=== PATIENT | male | born 1940 | race Hispanic/Latino ===

== ENCOUNTER 2017-10-22 21:15 | Emergency (ER) | payer MEDICARE, OTHER ==
[~2017-10-22] VITALS: Ht 167.6 cm; Wt 76.2 kg
[~2017-10-22 21:15] MED LIST: ASPIR 8181 MG PO; LISINOPRIL5 MG PO; LOPRESSOR25 MG PO; PRAVACHOL40 MG PO; ULTRAM50 MG PO; ZESTRIL10 MG PO
== END 2017-10-22 23:59 | disposition home or self-care (01) ==
LOC: ER 21:15
DX: I10 Essential (primary) hypertension (principal)
CPT/HCPCS: 93005; 99282

== ENCOUNTER → 2017-12-08 | Outpatient (CLI) | payer MEDICARE, OTHER ==
--- NOTE | 2017-12-08 19:08 | Diagnostic Imaging Report ---
PROCEDURE: CT CHEST WITHOUT CONTRAST CT scan of the chest WITHOUT intravenous contrast, using standard protocol. TECHNIQUE: The chest was scanned utilizing a multidetector helical scanner from the apex to the level of the adrenal glands. No IV contrast was administered per physician's request. Coronal and sagittal multiplanar reformations were obtained. COMPARISON: [facility], CT, CT CHEST WO, 01/26/2013, 20:35. INDICATIONS: SMOKER FINDINGS: Lines/tubes: None. Lungs and Airways: Moderate bilateral centrilobular emphysematous changes predominantly involving the upper lobes, which are more prominent than on prior exam. Stable 7 mm polygonal shaped nodular density in the minor fissure (sagittal image 34 and series 3, image 74, consistent with a benign luca-fissural nodule. Stable 8mm density in the anterior left upper lobe (series 3, image 48) No other nodules. No masses or consolidation. Mildly increased attenuation of the parenchyma in the posterior upper lobes, similar to prior exams likely representing mild fibrosis or atelectasis. Mild bilateral lower lobe dependent atelectasis. Pleura: No effusion, or pneumothorax. Heart and mediastinum: Thyroid is unremarkable. Mild cardiomegaly. Atherosclerotic calcification of aortic valve, coronary arteries and thoracic aorta. Aorta is non-aneurysmal. Main pulmonary artery is enlarged, measuring 3.9 cm. Lymph nodes: No mediastinal or axillary adenopathy. Difficult to evaluate for hilar adenopathy given the lack of intravenous contrast. Abdomen: Limited views of the upper abdomen show no abnormality within the visualized spleen, pancreas, or kidneys. The adrenal glands are normal. Interval increase in size in fluid density lesion in hepatic segment IV/II (series 2 image 98), which measures 5.2 x 5.3 cm (previously measured 3.8 x 4.3 cm). Interval decrease in size of 1.1 x 1.1 cm fluid density lesion in hepatic segment III (series 2 image 109), which previously measured 1.5 x 1.5 cm. Cholelithiasis. No wall thickening Bones: No aggressive lytic lesions. Soft tissues are unremarkable. IMPRESSION: 1. moderate bilateral centrilobular emphysematous changes predominantly in the upper lobes, which are more prominent than on prior exam. 2. Mild increased attenuation of the parenchyma in the posterior aspect of bilateral upper lobes, similar to prior exams, which may represent mild dependent atelectasis or mild interstitial fibrosis. 3. Stable 8 mm density in the anterior left upper lobe, likely representing vessel branching, given its stability since 2013. A stable (probably benign) pulmonary nodule is a secondary consideration. Difficult to differentiate given the lack of intravenous contrast. 4. No consolidation or masses. 5. Mild cardiomegaly. 6. 5.3 centimeter simple cyst in hepatic segment IV/II, slightly increased in size. Interval decrease in size of 1.1 cm simple cyst in hepatic segment III. 7. Cholelithiasis, without CT evidence of cholecystitis. Niko Rehman M.D. Dictated by: Niko Rehman M.D. on 12/08/2017 at 19:11 Electronically approved by: Niko Rehman M.D. on 12/08/2017 at 19:11
== END ==
LOC: CT 13:08
PROVIDERS: ATTEND Family Medicine
DX: F17.210 Nicotine dependence, cigarettes, uncomplicated (principal)
CPT/HCPCS: 71250

== ENCOUNTER → 2018-11-08 | Outpatient (CLI) | payer MEDICARE ==
--- NOTE | 2018-11-08 18:23 | Diagnostic Imaging Report ---
Abdominal ultrasound. History: Abdominal pain Comparison: <None available>. Discussion: Transverse and longitudinal images of the abdomen were obtained demonstrating a liver of normal size and echogenicity measuring 15.9 cm in length. The portal vein is patent with hepatopetal flow and is within normal limits measuring 10 mm in diameter. There is a large left hepatic lobe cyst measuring 5.1 x 3.5 x 5.9 cm. The common bile duct measuring 4 mm in diameter. There are stones within the gallbladder with posterior acoustic shadowing. Gallbladder wall is not thickened. The sonographic Lubin's sign was negative. The kidneys are normal in size and echogenicity bilaterally without evidence of hydronephrosis, stones or mass. The right kidney measures 9.1 x 4.0 x 4.9 cm and the left kidney measures 10.5 x 5.8 x 4.7 cm. The spleen is normal in size and appearance measuring 8.2 x 4.1 x 4.0 cm. Limited evaluation of the pancreas due to bowel gas. The aorta has a maximal measurement of 1.7 cm. The IVC is patent. There is no evidence of free fluid. IMPRESSION: 1. Cholelithiasis without findings of cholecystitis. 2. Large left hepatic lobe cyst. Signed by: Dr. Dariel Deng DO on 11/08/2018 6:19 PM
== END ==
LOC: US 15:29
PROVIDERS: ATTEND Family Medicine
DX: R10.9 Unspecified abdominal pain (principal)
CPT/HCPCS: 76700

== ENCOUNTER → 2018-12-08 | Outpatient (CLI) | payer MEDICARE ==
--- NOTE | 2018-12-08 20:22 | Diagnostic Imaging Report ---
Hepatobiliary Scan with Gallbladder Ejection Fraction Clinical information: Abdominal pain; cholelithiasis Technique: Following intravenous administration of 6.7 millicuries of Tc-99m mebrofenin, dynamic images of the abdomen in the anterior projection were obtained through 30 minutes. Sincalide (CCK analog) 1.5 micrograms was administered intravenously over 30 minutes with additional imaging for determination of gallbladder ejection fraction. Discussion: Perfusion of the liver is normal. Extraction of tracer by the liver parenchyma is normal. Tracer appears promptly within the biliary tract. The gallbladder begins to fill at 12 minutes post injection of tracer and fills adequately. Tracer is seen in the small bowel during the sincalide infusion. There is no contractile response by the gallbladder to the pharmacologic dose of sincalide. No emptying of the gallbladder occurs during the 30 minute infusion. Impression: 1. Filling of the gallbladder excludes acute cystic duct obstruction/acute cholecystitis. 2. The gallbladder ejection fraction is undefined as there is no emptying of the gallbladder during the infusion of sincalide. This absence of a contractile response to sincalide supports the clinical diagnosis of chronic cholecystitis/gallbladder dyskinesia. Signed by: Dr. Jackie Montiel M.D. on 12/08/2018 8:19 PM
== END ==
LOC: NM 11:09
PROVIDERS: ATTEND Family Medicine
DX: R10.9 Unspecified abdominal pain (principal); K80.80 Other cholelithiasis without obstruction
CPT/HCPCS: 78227; A9537

== ENCOUNTER 2019-02-24 14:19 | Emergency (ER) | payer MEDICARE ==
[~2019-02-24] VITALS: Ht 167.6 cm; Wt 76.2 kg
--- OUTSIDE RECORDS SUMMARY | 2019-02-24 14:21 | XMS REPORT ---
Author Author [facility] Organization [facility] Address Unknown Phone Unavailable Care Team Providers Care Assistant Accounting Manager Name Role Phone RACIEL IRAIS Unavailable Unavailable Payers Payer Name Policy Type Policy Number Effective Date Expiration Date Problems This patient has no known problems. Allergies, Adverse Reactions, Alerts This patient has no known allergies or adverse reactions. Medications This patient has no known medications. Results Test Description Test Time Test Comments Text Results Atomic Results Result Comments HEPTOBILIARY W PHARM 2018-12-08 20:17:00 [place] [address] Patient Name: DEJUAN HICKS MR #: [id number] : 1940 Age/Sex: 78/M Req #: [id number] Adm Physician: Ordered by: RACIEL BURRIS, IRAIS Neri MD Report #: [id number] Location: [place] Room/Bed: Procedure: [id number] NM/HEPTOBILIARY W PHARM Exam Date: 12/08/18 Exam Time: 1115 REPORT STATUS: Signed Hepatobiliary Scan with Gallbladder Ejection Fraction Clinical information: Abdominal pain; cholelithiasis Technique: Following intravenous administration of 6.7 millicuries of Tc-99m mebrofenin, dynamic images of the abdomen in the anterior projection were obtained through 30 minutes. Sincalide (CCK analog) 1.5 micrograms was administered intravenously over 30 minutes with additional imaging for determination of gallbladder ejection fraction. Discussion: Perfusion of the liver is normal. Extraction of tracer by the liver parenchyma is normal. Tracer appears promptly within the biliary tract. The gallbladder begins to fill at 12 minutes post injection of tracer and fills adequately. Tracer is seen in the small bowel during the sincalide infusion. There is no contractile response by the gallbladder to the pharmacologic dose of sincalide. No emptying of the gallbladder occurs during the 30 minute infusion. Impression: 1. Filling of the gallbladder excludes acute cystic duct obstruction/acute cholecystitis. 2. The gallbladder ejection fraction is undefined as there is no emptying of the gallbladder during the infusion of sincalide. This absence of a contractile response to sincalide supports the clinical diagnosis of chronic cholecystitis/gallbladder dyskinesia. Signed by: Dr. Jackie Montiel M.D. on 12/08/2018 8:19 PM Dictated By: JACKIE MONTIEL MD 18 Transcribed By: MATTHEW on 12/08/182018 COPY TO: IRAIS SCHRADER ABDOMEN COMPLETE 2018-11-08 18:13:00 [place] [address] Patient Name: DEJUAN HICKS MR #: [id number] : 1940 Age/Sex: 78/M Req #: [id number] Adm Physician: Ordered by: RACIEL BURRIS, IRAIS Neri MD Report #: [id number] Location: [place] Room/Bed: Procedure: [id number] US/US ABDOMEN COMPLETE Exam Date: 11/08/18 Exam Time: 1546 REPORT STATUS: Signed Abdominal ultrasound. History: Abdominal pain Comparison: <None available>. Discussion: Transverse and longitudinal images of the abdomen were obtained demonstrating a liver of normal size and echogenicity measuring 15.9 cm in length. The portal vein is patent with hepatopetal flow and is within normal limits measuring 10 mm in diameter. There is a large left hepatic lobe cyst measuring 5.1 x 3.5 x 5.9 cm. The common bile duct measuring 4 mm in diameter. There are stones within the gallbladder with posterior acoustic shadowing. Gallbladder wall is not thickened. The sonographic Lubin's sign was negative. The kidneys are normal in size and echogenicity bilaterally without evidence of hydronephrosis, stones or mass. The right kidney measures 9.1 x 4.0 x 4.9 cm and the left kidney measures 10.5 x 5.8 x 4.7 cm. The spleen is normal in size and appearance measuring 8.2 x 4.1 x 4.0 cm. Limited evaluation of the pancreas due to bowel gas. The aorta has a maximal measurement of 1.7 cm. The IVC is patent. There is no evidence of free fluid. IMPRESSION: 1. Cholelithiasis without findings of cholecystitis. 2. Large left hepatic lobe cyst. Signed by: Dr. Janki Deng DO on 11/08/2018 6:19 PM Dictated By: JANKI DENG DO 18 Transcribed By: MATTHEW on 11/08/181818 COPY TO: IRAIS SCHRADER CT CHEST [place] [address] Patient Name: DEJUAN HICKS MR #: [id number] : 1940 Age/Sex: 77/M Req #: [id number] Adm Physician: Ordered by: IRAIS SCHRADER MD, MD Report #: [id number] Location: CT Room/Bed: Procedure: [id number] CT/CT CHEST WO Exam Date: 12/08/17 Exam Time: 1315 REPORT STATUS: Signed PROCEDURE: CT CHEST WITHOUT CONTRAST CT scan of the chest WITHOUT intravenous contrast, using standard protocol. TECHNIQUE: The chest was scanned utilizing a multidetector helical scanner from the apex to the level of the adrenal glands. No IV contrast was administered per physician's request. Coronal and sagittal multiplanar reformations were obtained. COMPARISON: [facility] [place], CT, CT CHEST WO, 01/26/2013, 20:35. INDICATIONS: SMOKER FINDINGS: Lines/tubes: None. Lungs and Airways: Moderate bilateral centrilobular emphysematous changes predominantly involving the upper lobes, which are more prominent than on prior exam. Stable 7 mm polygonal shaped nodular density in the minor fissure (sagittal image 34 and series 3, image 74, consistent with a benign luca-fissural nodule. Stable 8mm density in the anterior left upper lobe (series 3, image 48) No other nodules. No masses or consolidation. Mildly increased attenuation of the parenchyma in the posterior upper lobes, similar to prior exams likely representing mild fibrosis or atelectasis. Mild bilateral lower lobe dependent atelectasis. Pleura: No effusion, or pneumothorax. Heart and mediastinum: Thyroid is unremarkable. Mild cardiomegaly. Atherosclerotic calcification of aortic valve, coronary arteries and thoracic aorta. Aorta is non-aneurysmal. Main pulmonary artery is enlarged, measuring 3.9 cm. Lymph nodes: No mediastinal or axillary adenopathy. Difficult to evaluate for hilar adenopathy given the lack of intravenous contrast. Abdomen: Limited views of the upper abdomen show no abnormality within the visualized spleen, pancreas, or kidneys. The adrenal glands are normal. Interval increase in size in fluid density lesion in hepatic segment IV/II (series 2 image 98), which measures 5.2 x 5.3 cm (previously measured 3.8 x 4.3 cm). Interval decrease in size of 1.1 x 1.1 cm fluid density lesion in hepatic segment III (series 2 image 109), which previously measured 1.5 x 1.5 cm. Cholelithiasis. No wall thickening Bones: No aggressive lytic lesions. Soft tissues are unremarkable. IMPRESSION: 1. moderate bilateral centrilobular emphysematous changes predominantly in the upper lobes, which are more prominent than on prior exam. 2. Mild increased attenuation of the parenchyma in the posterior aspect of bilateral upper lobes, similar to prior exams, which may represent mild dependent atelectasis or mild interstitial fibrosis. 3. Stable 8 mm density in the anterior left upper lobe, likely representing vessel branching, given its stability since 2013. A stable (probably benign) pulmonary nodule is a secondary consideration. Difficult to differentiate given the lack of intravenous contrast. 4. No consolidation or masses. 5. Mild cardiomegaly. 6. 5.3 centimeter simple cyst in hepatic segment IV/II, slightly increased in size. Interval decrease in size of 1.1 cm simple cyst in hepatic segment III. 7. Cholelithiasis, without CT evidence of cholecystitis. Lazara Rehman M.D. Dictated by: Lazara Rehman M.D. on 12/08/2017 at 19:11 Electronically approved by: Lazara Rehman M.D. on 12/08/2017 at 19:11 Dictated By: LAZARA REHMAN MD 10 Transcribed By: DEL on 12/08/171910 COPY TO: IRAIS SCHRADER
[2019-02-24] MEDS ORDERED: MECLIZINE HCL 12.5 MG TAB PO ONE (14:45)
[2019-02-24] MEDS ORDERED: CLONIDINE HCL 0.2 MG TAB PO ONE (14:45)
[2019-02-24] MEDS ORDERED: CLONIDINE HCL 0.1 MG TAB ONE (15:12)
[2019-02-24] MEDS ORDERED: MECLIZINE HCL 12.5 MG TAB ONE (15:12)
--- NOTE | 2019-02-24 18:06 | Diagnostic Imaging Report ---
EXAMINATION: Head CT HISTORY: Dizziness COMPARISON: None. TECHNIQUE: Multidetector axial images were obtained without contrast from the foramen magnum to the vertex . The images were reconstructed using brain and bone algorithms. Thin section brain images were reformatted into coronal and sagittal planes. Image quality: Motion/streaking artifact limits the evaluation of the skull base and posterior cranial fossa. Dose modulation, iterative reconstruction, and/or weight based adjustment of the mA/kV was utilized to reduce the radiation dose to as low as reasonably achievable. FINDINGS: Parenchyma: 1. Nonspecific approximately 7 mm dystrophic calcification in the left superior frontal gyrus, without surrounding edema or mass effect which may represent sequela from remote trauma or infection such as cysticercosis. 2. A few scattered and mildly confluent periventricular white matter hypodensities, most likely nonspecific chronic microvascular ischemic changes. 3. No mass or hemorrhage. No CT evidence of acute territorial vascular insult. Extra-axial spaces:No abnormal density. No extra-axial fluid collections Brain volume: Normal for age. Ventricles: No hydrocephalus or displacement. Arteries: No density suggestive of thrombus. Dural sinuses: No abnormal density. Extra-axial spaces: No abnormal density. Foramen magnum: No mass, Chiari malformation, or basilar invagination. Sella: No obvious mass. Paranasal/mastoid sinuses: Minimal mucosal inflammatory thickening and partial opacification of the right maxillary sinus, otherwise clear. Skull/Scalp: No lytic or blastic lesions. No fractures. IMPRESSION: 1. No acute intracranial abnormalities. 2. Mild chronic microvascular ischemic changes. 3. Small left frontal calcification as described. Signed by: Dr. Keyla Jade M.D. on 02/24/2019 6:02 PM
== END 2019-02-24 18:21 | disposition home or self-care (01) ==
LOC: FSED 14:19
DX: R42 Dizziness and giddiness (principal); H81.11 Benign paroxysmal vertigo, right ear; I10 Essential (primary) hypertension
CPT/HCPCS: 70450; 80053; 82553; 84484; 85025; 93005; 99284; J8597

== ENCOUNTER → 2020-09-03 | Outpatient (CLI) | payer MEDICARE, OTHER | LOC: RAD 12:16 | PROVIDERS: ATTEND Family Medicine | DX: Z09 Encounter for follow-up examination after completed treatment for conditions other than malignant neoplasm (principal); U07.1 COVID-19 | CPT/HCPCS: 71046 ==

== ENCOUNTER → 2020-12-05 | Outpatient (CLI) | payer MEDICARE, OTHER | LOC: RAD 13:41 | PROVIDERS: ATTEND Family Medicine | DX: M54.5 Low back pain (principal) | CPT/HCPCS: 72110 ==

== ENCOUNTER 2021-01-09 09:32 | Emergency (ER) | payer MEDICARE, OTHER ==
[~2021-01-09] VITALS: Ht 152.4 cm; Wt 66.4 kg
[2021-01-09] MEDS ORDERED: KETOROLAC TROMETHAMINE 60 MG/2 ML VIAL IM STA (09:55)
[2021-01-09] MEDS ORDERED: PREDNISONE 20 MG TAB PO STA (09:55)
[2021-01-09] MEDS ORDERED: KETOROLAC TROMETHAMINE 30 MG/ML VIAL ONE (10:10)
[2021-01-09] MEDS ORDERED: PREDNISONE 20 MG TAB ONE (10:10)
[2021-01-09] MEDS ORDERED: AMLODIPINE BESYL5 MG PO (10:24)
[2021-01-09] MEDS ORDERED: INDOCIN50 MG PO (10:24)
[2021-01-09] MEDS ORDERED: BACLOFEN10 MG PO (10:24)
[2021-01-09] MEDS ORDERED: TYLENOL EXTRA500 MG PO (10:24)
[2021-01-09] MEDS ORDERED: MOTRIN200 MG PO (10:29)
[2021-01-09] MEDS ORDERED: PREDNISONE20 MG PO (10:29)
== END 2021-01-09 10:40 | disposition home or self-care (01) ==
LOC: FSED 09:45
DX: M54.42 Lumbago with sciatica, left side (principal); I10 Essential (primary) hypertension
CPT/HCPCS: 72100; 96372; 99283; J1885; J7512

== ENCOUNTER → 2021-09-13 | Outpatient (CLI) | payer MEDICARE, OTHER ==
[~2021-09-13] MED LIST changes: +AMLODIPINE BESYL5 MG PO; +BACLOFEN10 MG PO; +INDOCIN50 MG PO; +MOTRIN200 MG PO; +PREDNISONE20 MG PO; +TYLENOL EXTRA500 MG PO
== END ==
LOC: MRI 12:28
PROVIDERS: ATTEND Family Medicine
DX: M54.50 Low back pain, unspecified (principal)
CPT/HCPCS: 72148

== ENCOUNTER → 2022-05-14 | Outpatient (CLI) | payer MEDICARE, OTHER | LOC: US 13:52 | PROVIDERS: ATTEND Internal Medicine | DX: I12.9 Hypertensive chronic kidney disease with stage 1 through stage 4 chronic kidney disease, or unspecified chronic kidney disease (principal); R80.9 Proteinuria, unspecified; E88.9 Metabolic disorder, unspecified | CPT/HCPCS: 76770 ==

== ENCOUNTER → 2024-06-02 | Outpatient (REF) | payer MEDICARE ==
[~2024-06-02] MED LIST changes: +ASPIRIN81 MG PO; +BENICAR5 MG PO; +CRESTOR10 MG PO
== END ==
LOC: RAD 14:25
PROVIDERS: ATTEND Family Medicine
DX: J18.9 Pneumonia, unspecified organism (principal)
CPT/HCPCS: 71046